=== PATIENT | male | born 1950 ===

== ENCOUNTER 2019-02-20 07:43 | Outpatient (CLI) | payer OTHER | END 2019-02-20 11:48 | disposition home or self-care (01) | LOC: SONOGRAMA 07:43 → MAMO-SONO 08:15 → SONOGRAMA 11:48 | DX: K85.00 Idiopathic acute pancreatitis without necrosis or infection (principal) ==

== ENCOUNTER 2020-10-05 19:11 | Emergency (ER) | payer OTHER ==
[~2020-10-05] VITALS: Ht 175.3 cm; Wt 95.3 kg
[2020-10-05] MEDS ORDERED: COZAAR100 MG (19:28)
[2020-10-05] MEDS ORDERED: ATORVASTATIN CA10 MG (19:29)
[2020-10-05] MEDS ORDERED: NORVASC10 MG (19:29)
== END 2020-10-05 21:29 | disposition home or self-care (01) ==
LOC: ER 19:11
DX: B34.9 Viral infection, unspecified (principal); Z03.818 Encounter for observation for suspected exposure to other biological agents ruled out

== ENCOUNTER 2025-07-07 08:42 | Outpatient (CLI) | payer OTHER ==
[~2025-07-07 08:42] MED LIST: ATORVASTATIN CA10 MG; COZAAR100 MG; NORVASC10 MG
== END 2025-07-07 08:47 | disposition home or self-care (01) ==
LOC: RAD 08:42
PROVIDERS: ATTEND General Practice
DX: M15.9 Polyosteoarthritis, unspecified (principal)